=== PATIENT | female | born 1980 | race Caucasian/White ===

== ENCOUNTER 2016-11-27 20:50 | Emergency (ER) | payer SELFPAY ==
[2016-11-27 20:51] VITALS: BMI 32.5
[2016-11-27 21:08] VITALS: TEMP 98.1
[2016-11-27 21:23] LABS: AUTOMATED BASOPHIL 0.7 % (0-2); AUTOMATED EOSINOPHIL 0.7 % (0-5); AUTOMATED LYMPH 17.5 % (17-44); AUTOMATED MONOCYTE 4.1 % (3-10); MPV 9.4 fL (7.4-10.4)
[2016-11-27 21:26] LABS: LEUKOCYTES/URINE NEG (NEGATIVE); NITRITE/URINE NEG (NEGATIVE); URINE OCCULT BLOOD NEG (NEG/TRACE); WBC/URINE 0-2 (0-5)
[2016-11-27 21:28] LABS: BLOOD UREA NITROGEN 11 MG/DL (7-17); CALCIUM 8.7 MG/DL (8.4-10.2); CALCULATED OSMOLALITY 272 MOs/Kg (270-290); CHLORIDE 104 mEq/L (98-107); GLUCOSE 106 mg/dL (70-99); SODIUM LEVEL 142 mEq/L (137-146); TOTAL PROTEIN 7.8 G/DL (6.3-8.2)
[2016-11-27] MEDS ORDERED: NS 1,000 ML IV ONE (23:15)
[2016-11-27] MEDS ORDERED: MORPHINE 4 MG/ML INJECTION IV ONE (23:15)
[2016-11-27] MEDS ORDERED: ONDANSETRON HCL 4 MG/2 ML VIAL IV ONE (23:15)
--- NOTE | 2016-11-27 23:15 | EDPRACDOC ---
- General Information Chief Complaint: Abdominal Pain Stated Complaint: ABD PAIN Time Seen by Provider: 11/27/16 23:09 Mode Of Arrival: Car Home Medications: Home Medications Cyclobenzaprine HCl [Flexeril] 10 mg PO TID PRN #15 tablet 10/11/16 Hydrocodone Bit/Acetaminophen [Lortab 5/325] 1 tab PO Q4-6H PRN #15 tab Ondansetron [Zofran Odt] 4 mg PO TID PRN #10 tab.rapdis 11/28/16 Oxycodone Immediate Release [Oxy-Ir] 5 mg PO Q6H PRN #20 tab 11/28/16 Allergies/Adverse Reactions: Allergies Allergy/AdvReac Type Severity Reaction Status Date / Time No Known Allergies Allergy Verified 10/11/16 10:50 - History of Present Illness Onset: saturday HPI: PT COMPLAINS OF DIFFUSE, CRAMPING ABD PAIN, N/V/D, NO FEVER OR CHILLS, SYMPTOMS BEGAN AROUND 1700 TODAY, HAS USED IMODIUM WITHOUT RELIEF. Pain Location: Reports: Diffuse Pain Context: Reports: Spontaneous Pain Severity: Severe Pain Quality: Reports: Cramping Pain Radiation: Reports: No Radiation Last Menstrual Period: Oct 25 : (unknown) Blood Type: O+ Adult Abdominal History: Denies: Abdominal Surgery, Urolithiasis, Bowel Obstruction, Similar Pain (dx) Female Abdominal History: Denies: Abdominal Surgery, UTI, Ectopic, PID, Urolithiasis, Similar Pain (dx) Modifying Factors: improves with: Nothing Female Associated Signs & Symptoms: Reports: Nausea, Vomiting, Diarrhea. Denies : Frequency, Vaginal Bleeding, Hematemesis, Anorexia, Melena, Dysuria, Fever, Urgency, Hematuria, Chills, Vaginal Discharge Oral Intake: Normal Urinary Output: Normal ED Past Medical History - History Reviewed Yes Nurses notes reviewed and agree except as marked No Past Medical History: Yes Patient has no past medical history - Patient Medical History Psychological History: Denies: Depression Systemic History: Denies: Cancer, Anemia, Lupus Surgical History: Denies: Hysterectomy - Family Medical History Reports: Hypertension, Diabetes, Cardiac Disorders. Denies: Cancer, Stroke - Social Medical History Smoking Status: Never smoker ETOH: None Substance Abuse: None EDM Review of Systems - Review of Systems Constitutional: negative: Chills, Fever Eyes: negative: Blurred Vision, Double Vision Ears: negative: Drainage Throat: negative: Pain Nose: negative: Congestion, Discharge Respiratory: negative: Cough, Shortness of Breath, Wheezing Cardiovascular: negative: Chest Pain, Palpitations Gastrointestinal: Diarrhea, Nausea, Pain, Vomiting Genitourinary: negative: Dysuria, Frequency Neurological: negative: Dizziness, Headache, Numbness, Weakness Musculoskeletal: No Symptoms Reported Integumentary: No Symptoms Reported - Physical Exam Constitutional: Alert (Awake), No apparent distress Oriented to: Time, Person, Place Last recorded Vital Signs: Last Vital Signs Temp 98.1 F 11/27/16 21:01 Pulse 66 11/28/16 00:37 Resp 20 11/28/16 00:37 BP 114/67 11/28/16 00:37 Pulse Ox 97 11/28/16 00:37 Oxygen Pulse Oxygen Saturation 97 O2 Device Room Air Oxygen Flow Rate Fraction of Inspired Oxygen ( FIO2) - HEENT Head: Normal ( normocephalic) Eye Exam: Normal (PERRL, EOMI, Sclera white) Oropharynx: Normal (Pharynx:Moist without exudate,Gums-no swelling) Tympanic Membrane: Normal ENT EAC: Normal TMJ: Normal Nose: No Symptoms Reported (septum midline) Neck: Normal (FROM, trachea at midline) - Respiratory/Cardiovascular Respiratory: Normal - CTA (BBS clear to auscultation without adventitious sounds ) Cardiovascular: Normal (RRR without murmur, gallop or rub) - GI Auscultation: Normal (NABS) Palpation: Normal (Soft,No rebound or guarding, non distended) Tenderness: Moderate, LUQ, LLQ, Epigastric, Suprapubic. negative: Guarding, Rebound, Rigidity Starr's Sign: Negative - Musculoskeletal Back: Normal (Non-Tender) Extremities: Normal (Normal tone, Pulses 2+ No cyanosis or edema, FROM) - Integumentary Skin: Normal, Warm, Dry Lymphatics: Normal (no adenopathy) - Neurologic Memory Impaired: Normal Motor Function: Normal (Normal tone, Pulses 2+ No cyanosis or edema, FROM) Cranial Nerve: Normal (CN II-X11 intact sensation, strength 5/5) Cerebellar: Normal Mood Description: Normal Perception: Normal - Differential Diagnosis Bowel Obstruction, Cholecystitis, Cholelithiasis, Constipation, Diverticulitis, IBS, Pancreatitis, UTI - Re-evaluation Re-evaluation 1 Re-evaluation Time: 01:27 (PAIN IMPROVED) - Results 11/27/16 21:06 11/27/16 21:06 WBC 8.0 xk/uL (3.8-10.8) 11/27/16 21:06 RBC 4.08 xM/uL (4.20-5.40) L 11/27/16 21:06 Hgb 12.8 g/dL (12.0-16.0) 11/27/16 21:06 Hct 37.5 % (36-47) 11/27/16 21:06 MCV 92 fL (81-99) 11/27/16 21:06 MCH 31.3 pg (27-32) 11/27/16 21:06 MCHC 34.1 g/dl (33-36) 11/27/16 21:06 RDW 13.3 % (11.5-14.5) 11/27/16 21:06 Plt Count 257 xk/uL (130-400) 11/27/16 21:06 MPV 9.4 fL (7.4-10.4) 11/27/16 21:06 Neut % (Auto) 77.0 % (45-76) H 11/27/16 21:06 Lymph % (Auto) 17.5 % (17-44) 11/27/16 21:06 [place] % (Auto) 4.1 % (3-10) 11/27/16 21:06 Eos % (Auto) 0.7 % (0-5) 11/27/16 21:06 Baso % (Auto) 0.7 % (0-2) 11/27/16 21:06 Absolute Neuts (auto) 6.16 xk/uL (1.7-8.2) 11/27/16 21:06 Absolute Lymphs (auto) 1.36 xk/uL (0.65-4.75) 11/27/16 21:06 Sodium 142 mEq/L (137-146) 11/27/16 21:06 Potassium 4.0 mEq/L (3.5-5.1) 11/27/16 21:06 Chloride 104 mEq/L (98-107) 11/27/16 21:06 Carbon Dioxide 27 mMOL/L (22-33) 11/27/16 21:06 Anion Gap 15 mEq/L (8-16) 11/27/16 21:06 BUN 11 MG/DL (7-17) 11/27/16 21:06 Creatinine 0.50 MG/DL (0.52-1.04) L 11/27/16 21:06 Estimated GFR (MDRD) > 60 mL/min (>=60) 11/27/16 21:06 Glucose 106 mg/dL (70-99) H 11/27/16 21:06 Calculated Osmolality 272 MOs/Kg (270-290) 11/27/16 21:06 Calcium 8.7 MG/DL (8.4-10.2) 11/27/16 21:06 Total Bilirubin 0.3 MG/DL (0.2-1.3) 11/27/16 21:06 AST 17 IU/L (14-36) 11/27/16 21:06 ALT 21 IU/L (9-52) 11/27/16 21:06 Alkaline Phosphatase 86 IU/L (38-126) 11/27/16 21:06 Total Protein 7.8 G/DL (6.3-8.2) 11/27/16 21:06 Albumin 4.4 G/DL (3.5-5.0) 11/27/16 21:06 Lipase 22 U/L (23-300) L 11/27/16 21:06 Urine Color Yellow 11/27/16 21:06 Urine Clarity Hazy 11/27/16 21:06 Urine pH 7.0 (5.0-8.0) 11/27/16 21:06 Ur Specific [place] 1.015 (1.003-1.035) 11/27/16 21:06 Urine Protein Neg (NEG/TRACE) 11/27/16 21:06 Urine Glucose (UA) Neg (NEGATIVE) 11/27/16 21:06 Urine Ketones Neg (NEGATIVE) 11/27/16 21:06 Urine Occult Blood Neg (NEG/TRACE) 11/27/16 21:06 Urine Nitrite Neg (NEGATIVE) 11/27/16 21:06 Urine Bilirubin Neg (NEGATIVE) 11/27/16 21:06 Urine Urobilinogen <2.0 MG/DL (0-1) 11/27/16 21:06 Ur Leukocyte Esterase Neg (NEGATIVE) 11/27/16 21:06 Urine RBC 2-5 (0-5) 11/27/16 21:06 Urine WBC 0-2 (0-5) 11/27/16 21:06 Ur Epithelial Cells 2+ 11/27/16 21:06 Urine Bacteria Few (NEG/FEW) 11/27/16 21:06 Urine Mucus Sm amt (NEG/OCC) 11/27/16 21:06 Urine Test Neg (NEGATIVE) 11/27/16 21:06 Lab Results 11/27/16 11/27/16 11/27/16 21:06 21:06 21:06 WBC 8.0 RBC 4.08 L Hgb 12.8 Hct 37.5 MCV 92 MCH 31.3 MCHC 34.1 RDW 13.3 Plt Count 257 MPV 9.4 Neut % (Auto) 77.0 H Lymph % (Auto) 17.5 [place] % (Auto) 4.1 Eos % (Auto) 0.7 Baso % (Auto) 0.7 Absolute Neuts (auto) 6.16 Absolute Lymphs (auto) 1.36 Sodium Potassium Chloride Carbon Dioxide Anion Gap BUN Creatinine Estimated GFR (MDRD) Glucose Calculated Osmolality Calcium Total Bilirubin AST ALT Alkaline Phosphatase Total Protein Albumin Lipase Urine Color Yellow Urine Clarity Hazy Urine pH 7.0 Ur Specific [place] 1.015 Urine Protein Neg Urine Glucose (UA) Neg Urine Ketones Neg Urine Occult Blood Neg Urine Nitrite Neg Urine Bilirubin Neg Urine Urobilinogen <2.0 Ur Leukocyte Esterase Neg Urine RBC 2-5 Urine WBC 0-2 Ur Epithelial Cells 2+ Urine Bacteria Few Urine Mucus Sm amt Urine Test Neg 11/27/16 21:06 WBC RBC Hgb Hct MCV MCH MCHC RDW Plt Count MPV Neut % (Auto) Lymph % (Auto) [place] % (Auto) Eos % (Auto) Baso % (Auto) Absolute Neuts (auto) Absolute Lymphs (auto) Sodium 142 Potassium 4.0 Chloride 104 Carbon Dioxide 27 Anion Gap 15 BUN 11 Creatinine 0.50 L Estimated GFR (MDRD) > 60 Glucose 106 H Calculated Osmolality 272 Calcium 8.7 Total Bilirubin 0.3 AST 17 ALT 21 Alkaline Phosphatase 86 Total Protein 7.8 Albumin 4.4 Lipase 22 L Urine Color Urine Clarity Urine pH Ur Specific [place] Urine Protein Urine Glucose (UA) Urine Ketones Urine Occult Blood Urine Nitrite Urine Bilirubin Urine Urobilinogen Ur Leukocyte Esterase Urine RBC Urine WBC Ur Epithelial Cells Urine Bacteria Urine Mucus Urine Test - Diagnostic Imaging CT ABD/PELVIS Image interpreted by: Radiologist 11/28/16 01:27 CT ABDOMEN AND PELVIS WITH CONTRAST TECHNIQUE: Multidetector CT imaging of the abdomen and pelvis was performed using the standard protocol following bolus administration of intravenous contrast. CONTRAST: 100 mL of Isovue 370 IV contrast COMPARISON: CT of the abdomen and pelvis from 10/11/2016 FINDINGS: The visualized lung bases are clear. The liver and spleen are unremarkable in appearance. Stones and sludge are seen layering dependently within the gallbladder. The gallbladder is otherwise unremarkable. The pancreas and adrenal glands are unremarkable. The kidneys are unremarkable in appearance. There is no evidence of hydronephrosis. No renal or ureteral stones are seen. No perinephric stranding is appreciated. No free fluid is identified. The small bowel is unremarkable in appearance. The stomach is within normal limits. No acute vascular abnormalities are seen. The appendix is not definitely characterized; there is no evidence of appendicitis. The colon is grossly unremarkable in appearance. The bladder is mildly distended and grossly unremarkable. The uterus is unremarkable in appearance. The ovaries are relatively symmetric. No suspicious adnexal masses are seen. No inguinal lymphadenopathy is seen. No acute osseous abnormalities are identified. IMPRESSION: 1. No acute abnormality seen within the abdomen or pelvis. 2. Stones and sludge noted within the gallbladder. Gallbladder otherwise unremarkable. Decision Time to Discharge: 01:30 - Departure Disposition: Home Condition: Stable Final Diagnosis: Abdominal pain Cholelithiasis Qualifiers: Cholelithiasis location: gallbladder Cholecystitis presence: without cholecystitis Biliary obstruction: without biliary obstruction Qualified Code(s) : K80.20 - Calculus of gallbladder without cholecystitis without obstruction Instructions: Acute Abdominal Pain (ED), Cholelithiasis Education/Counseling Given To: Patient Education/Counseling Given Regarding: Diagnosis, Treatment, Prognosis, Follow Up Referrals: Zane Raines DO [Staff Physician] - 1-2 days Prescriptions: New Ondansetron [Zofran Odt] 4 mg PO TID PRN #10 tab.rapdis PRN Reason: Nausea/Vomiting Oxycodone Immediate Release [Oxy-Ir] 5 mg PO Q6H PRN #20 tab PRN Reason: Pain No Action Cyclobenzaprine HCl [Flexeril] 10 mg PO TID PRN #15 tablet PRN Reason: Pain Hydrocodone Bit/Acetaminophen [Lortab 5/325] 1 tab PO Q4-6H PRN #15 tab PRN Reason: Pain Forms: Excuse Note Additional Instructions: EAT A BLAND DIET ONLY, AVOID FRIED, FATTY, GREASY FOODS. CONTACT DR RAINES TOMORROW TO ARRANGE FOLLOW UP APPOINTMENT, RETURN TO THE ED FOR ANY WORSENING SYMPTOMS OR CONCERNS ESPECIALLY WORSENING PAIN, FEVER OR UNCONTROLLED VOMITING.
[2016-11-27] MEDS ORDERED: Pharmacy Review for Metformin - IV Contrast Given SCH (23:45)
--- NOTE | 2016-11-28 01:25 | DIRPT ---
CLINICAL DATA: Acute onset of generalized abdominal pain, nausea, vomiting and diarrhea. Dysuria. Initial encounter. EXAM: CT ABDOMEN AND PELVIS WITH CONTRAST TECHNIQUE: Multidetector CT imaging of the abdomen and pelvis was performed using the standard protocol following bolus administration of intravenous contrast. CONTRAST: 100 mL of Isovue 370 IV contrast COMPARISON: CT of the abdomen and pelvis from 10/11/2016 FINDINGS: The visualized lung bases are clear. The liver and spleen are unremarkable in appearance. Stones and sludge are seen layering dependently within the gallbladder. The gallbladder is otherwise unremarkable. The pancreas and adrenal glands are unremarkable. The kidneys are unremarkable in appearance. There is no evidence of hydronephrosis. No renal or ureteral stones are seen. No perinephric stranding is appreciated. No free fluid is identified. The small bowel is unremarkable in appearance. The stomach is within normal limits. No acute vascular abnormalities are seen. The appendix is not definitely characterized; there is no evidence of appendicitis. The colon is grossly unremarkable in appearance. The bladder is mildly distended and grossly unremarkable. The uterus is unremarkable in appearance. The ovaries are relatively symmetric. No suspicious adnexal masses are seen. No inguinal lymphadenopathy is seen. No acute osseous abnormalities are identified. IMPRESSION: 1. No acute abnormality seen within the abdomen or pelvis. 2. Stones and sludge noted within the gallbladder. Gallbladder otherwise unremarkable. Electronically Signed By: Valentin Jain M.D. On: 11/28/2016 01:22
[2016-11-28 02:00] VITALS: BP 159/96; PULSE 63
== END 2016-11-28 01:57 | disposition home or self-care (01) ==
LOC: ED 20:50
DX: K80.20 Calculus of gallbladder without cholecystitis without obstruction (principal)
CPT/HCPCS: 36415; 74177; 80053; 81001; 81025; 83690; 85025; 96361; 96374; 96375; 99284; A9698; J2270; J2405